=== PATIENT | male | born 1960 | race Caucasian/White ===

== ENCOUNTER 2018-08-31 06:02 | Outpatient (CLI) | payer MEDICARE, SELFPAY ==
[2018-08-31 11:50] LABS: HCT 50.8 % (40.0-50.0); HGB 17.2 g/dL (13.5-17.5); Mean Corp. HGB Concentration 33.9 g/dL (32.0-36.0); Mean Corpuscular Volume 94.6 fL (80-95); Mean Platelet Volume 9.2 fL (8.0-11.0); Platelet Count 260 x1000/uL (130-400); RBC 5.37 m/cumm (4.50-6.00); RBC Distribution Width 14.1 % (11.8-14.1); White Blood Cell Count 12.15 k/cumm (4.4-10.8)
[2018-08-31 12:33] LABS: Anion Gap 8.5 mmol/L (3-11); BUN 6 mg/dL (7-18); CO2 29.5 mmol/L (21.0-32.0); CREATININE 1.02 mg/dL (0.70-1.30); Calcium 9.4 mg/dL (8.5-10.1); Chloride 102 mmol/L (98-107); Cholesterol 190 mg/dL (50-200); Glucose 95 mg/dL (70-100); HDL Cholesterol 38 mg/dL (40-60); LDL CHOLESTEROL 130 mg/dL (<100); Potassium 4.3 mmol/L (3.5-5.1); Sodium 140 mmol/L (136-145); Triglyceride 117 mg/dL (30-150)
== END 2018-08-31 06:22 ==
PROVIDERS: PCP Family Medicine; Visit Provider Family Medicine
DX: D45 Polycythemia vera (principal); E11.9 Type 2 diabetes mellitus without complications
CPT/HCPCS: 36415; 80048; 80061; 83721; 85027

== ENCOUNTER → 2018-10-25 08:56 | Outpatient (BNVA) | payer MEDICARE, SELFPAY | PROVIDERS: PCP Family Medicine; Referring Provider Family Medicine; Visit Provider Orthopaedic Surgery | DX: M65.331 Trigger finger, right middle finger (principal) | CPT/HCPCS: 99211; 99212 ==

== ENCOUNTER 2020-04-21 08:25 | Outpatient (CLI) | payer MEDICARE, SELFPAY ==
[2020-04-23 15:14] LABS: Patient Race White; SARS-CoV-2 RNA Undetected (Undetected); SARS-CoV-2 Specimen Source Nasopharynx
== END 2020-04-21 08:45 ==
PROVIDERS: PCP Family Medicine; Visit Provider Family Medicine
DX: R51 Headache (principal); R43.8 Other disturbances of smell and taste
CPT/HCPCS: U0003

== ENCOUNTER 2020-06-04 09:07 | Outpatient (CLI) | payer MEDICARE, SELFPAY ==
[2020-06-06 20:21] LABS: Patient Race White; SARS-CoV-2 RNA Undetected (Undetected); SARS-CoV-2 Specimen Source Nasopharynx
== END 2020-06-04 09:27 ==
PROVIDERS: PCP Family Medicine; Visit Provider Family Medicine
DX: R50.9 Fever, unspecified (principal); R19.7 Diarrhea, unspecified; R11.10 Vomiting, unspecified
CPT/HCPCS: 87449; U0003

== ENCOUNTER 2021-04-29 02:36 | Outpatient (CLI) | payer MEDICARE, SELFPAY ==
[2021-04-29 12:21] LABS: HCT 51.7 % (40.0-50.0); HGB 16.9 g/dL (13.5-17.5); MCH 31.2 pg (27.0-33.0); MCHC 32.7 % (32.0-36.0); MCV 95.4 fL (80-95); MPV 8.7 fL (8.0-11.0); Platelet Count 304 10^3/uL (130-400); RBC 5.42 10^6/uL (4.36-5.78); RDW 13.7 % (11.8-14.1); RDW-SD 48.4 fL; WBC 12.42 10^3/uL (4.4-10.8)
[2021-04-29 12:39] LABS: ALT 27 U/L (16-63); AST 24 U/L (15-37); Albumin 3.6 g/dL (3.4-5.0); Alkaline Phosphatase 109 U/L (46-116); Anion Gap 8.4 mmol/L (3-11); BUN 6 mg/dL (7-18); Bilirubin, Total 0.5 mg/dL (0.2-1.0); CO2 27.6 mmol/L (21.0-32.0); Calculated LDL 141 mg/dL (<100); Chloride 102 mmol/L (98-107); Cholesterol 198 mg/dL (<200); Glucose 143 mg/dL (74-106); HDL Cholesterol 37 mg/dL (40-60); Potassium 4.1 mmol/L (3.5-5.1); Sodium 138 mmol/L (136-145); Total Protein 7.1 g/dL (6.4-8.2); Triglyceride 104 mg/dL (<150)
[2021-04-29 12:43] LABS: Calcium 8.9 mg/dL (8.5-10.1)
[2021-04-29 13:49] LABS: Absolute Eosinophil Count 0.62 10^3/uL (0.0-0.7); Absolute Lymphocyte Count 3.73 10^3/uL (1.2-3.4); Absolute Monocyte Count 0.75 10^3/uL (0.1-0.8); Absolute Neutrophil Count 7.33 10^3/uL (1.2-6.7); Diff Comment Manual Differential; RBC Morphology Normal
== END 2021-04-29 02:37 | disposition home or self-care (01) ==
LOC: LOS 02:37
PROVIDERS: PCP Family Medicine; Visit Provider Family Medicine
DX: I10 Essential (primary) hypertension (principal); D45 Polycythemia vera
CPT/HCPCS: 36415; 80053; 80061; 85025

== ENCOUNTER 2021-05-05 02:32 | Outpatient (CLI) | payer MEDICARE, SELFPAY ==
[2021-05-05 12:57] LABS: Hemoglobin A1C 6.1 % (<5.7)
== END 2021-05-05 02:33 | disposition home or self-care (01) ==
LOC: LOS 02:33
PROVIDERS: PCP Family Medicine; Visit Provider Family Medicine
DX: Z13.1 Encounter for screening for diabetes mellitus (principal)
CPT/HCPCS: 36415; 83036

== ENCOUNTER 2021-07-02 14:55 | Outpatient (CLI) | payer MEDICARE, SELFPAY ==
--- NOTE | 2021-07-02 15:10 | DI.CT_ITS ---
Exam(s) CT HEAD WO EXAM: CT HEAD WO CLINICAL HISTORY: Accidental falls, headache R51.9. TECHNIQUE: Imaging Protocol: Axial computed tomography images with coronal and sagittal reformatted images were created and reviewed COMPARISON: CT CTA BRAIN AND NECK from 01/31/2017 FINDINGS: There is moderate generalized cerebral atrophy. No evidence of acute intracranial hemorrhage, mass effect, or midline shift. The orbital structures are unremarkable. The temporal bone structures appear intact. Calvarium: Normal. Visualized Paranasal sinuses/Mastoids: Clear. IMPRESSION: No evidence of acute intracranial process. RADIATION DOSE DELIVERED: 916.99mGy.cm Total DLP 916.99mGy.cm Total DLP CTDIvol DATA REPOSITORY: All CT scans at this facility are submitted to the National Radiology Data Registry (NRDR) Dose Index Registry (DIR) with the [employer] ([employer]). RADIATION OPTIMIZATION: All CT scans at this facility use at least one of these dose optimization te chniques: automated exposure control; mA and/or kV adjustment per patient size (includes targeted exa ms where dose is matched to clinical indication); or iterative reconstruction.
== END 2021-07-02 15:15 ==
LOC: DI 14:57
PROVIDERS: PCP Family Medicine; Visit Provider Family Medicine
DX: R51.9 Headache, unspecified (principal)
CPT/HCPCS: 70450

== ENCOUNTER 2021-07-21 01:27 | Outpatient (CLI) | payer MEDICARE, SELFPAY ==
[2021-07-21 13:31] LABS: Calculated LDL 61 mg/dL (<100); Cholesterol 125 mg/dL (<200); HDL Cholesterol 41 mg/dL (40-60); Triglyceride 117 mg/dL (<150)
== END 2021-07-21 01:28 | disposition home or self-care (01) ==
LOC: LOS 01:28
PROVIDERS: PCP Family Medicine; Visit Provider Family Medicine
DX: E78.2 Mixed hyperlipidemia (principal); Z00.00 Encounter for general adult medical examination without abnormal findings
CPT/HCPCS: 36415; 80061

== ENCOUNTER 2021-11-15 14:12 | Outpatient (CLI) | payer MEDICARE, SELFPAY ==
--- NOTE | 2021-11-15 13:30 | DI.RAD_ITS ---
Exam(s) XR HIP RT 1V XR HIP LT COMPLETE AP PELVIS EXAM: XR HIP LT COMPLETE AP PELVIS INDICATION: pain in hips. COMPARISON: CR from 03/29/2016 CR XR HIP RT 1V from 11/15/2021 TECHNIQUE: 2D digital imaging was performed. AP pelvis and frog-leg lateral views of both hips. FINDINGS: Hip joint spaces are well maintained. There is minimal acetabular spurring. Femoral heads appear in tact. Soft tissues unremarkable. SI joints and pubic symphysis appear normal. IMPRESSION: Mild degenerative changes of both hips. DATA REPOSITORY: RADIATION DOSE DELIVERED:
== END 2021-11-15 14:13 | disposition home or self-care (01) ==
LOC: DIORS 14:13
PROVIDERS: PCP Family Medicine; Referring Provider Family Medicine; Visit Provider Student in an Organized Health Care Education/Training Program
DX: M70.61 Trochanteric bursitis, right hip (principal); M70.62 Trochanteric bursitis, left hip
CPT/HCPCS: 99203; 73501; 73502

== ENCOUNTER 2021-11-30 01:21 | Outpatient (CLI) | payer MEDICARE, SELFPAY ==
--- NOTE | 2021-11-30 07:30 | DI.MRI_ITS ---
Exam(s) MR LOWER JOINT LT WO EXAM: MR LOWER JOINT LT WO CLINICAL HISTORY: PAIN LT HIP, M25.552. TECHNIQUE: Multiplanar multisequence MRI was performed.. COMPARISON: None. FINDINGS: BONES/JOINTS: No evidence of fracture. There is a small subchondral cyst in the superior acetabulum o n the left. No joint space narrowing identified. No joint effusion identified. MUSCULOTENDINOUS STRUCTURES: There is mild hyperintense signal seen in the region of the gluteus mini mus tendon insertion site onto the greater trochanter. The muscles in the left hip show normal signa l and size. No significant muscular fatty atrophy. SOFT TISSUES: No suspicious cystic or solid masses are seen in the soft tissues around the left hip. OTHER FINDINGS: There is diverticulosis seen in the sigmoid colon. IMPRESSION: Gluteus minimus tendinosis. DATA REPOSITORY:
== END 2021-11-30 01:41 ==
LOC: DI 01:22
PROVIDERS: PCP Family Medicine; Visit Provider Student in an Organized Health Care Education/Training Program
DX: M76.02 Gluteal tendinitis, left hip; M25.552 Pain in left hip
CPT/HCPCS: 73721

== ENCOUNTER → 2021-12-03 10:16 | Outpatient (BNVA) | payer MEDICARE, SELFPAY | PROVIDERS: PCP Family Medicine; Referring Provider Family Medicine; Visit Provider Student in an Organized Health Care Education/Training Program | DX: M70.62 Trochanteric bursitis, left hip (principal); M70.61 Trochanteric bursitis, right hip | CPT/HCPCS: 20610; J1040 ==

== ENCOUNTER → 2021-12-28 09:29 | Outpatient (BNVA) | payer MEDICARE, SELFPAY | PROVIDERS: PCP Family Medicine; Referring Provider Family Medicine; Visit Provider Physician Assistant Surgical | DX: M70.61 Trochanteric bursitis, right hip (principal); M70.62 Trochanteric bursitis, left hip | CPT/HCPCS: 20610; J1040 ==

== ENCOUNTER 2022-03-28 01:44 | Outpatient (CLI) | payer MEDICARE, SELFPAY ==
--- NOTE | 2022-03-28 11:17 | DI.CT_ITS ---
Exam(s) CT HEAD WO EXAM: CT HEAD WO CLINICAL HISTORY: concussion, headache,S06.0X1A. TECHNIQUE: Imaging Protocol: Axial computed tomography images with coronal and sagittal reformatted images were created and reviewed COMPARISON: CT CT HEAD WO from 07/02/2021 FINDINGS: There are no skull fractures nor fluid in the visualized paranasal sinuses. There is no evidence of intracranial hemorrhage, mass effect, or shift of midline structures. There are no extra-axial fluid collections. The ventricles are not enlarged or shifted and there is no blo od within the ventricular system nor within the basal cisterns. IMPRESSION: No acute intracranial findings on this noninfused CT scan of the brain. No significant change compared to 07/02/2021. RADIATION DOSE DELIVERED: 985.91mGy.cm Total DLP DATA REPOSITORY: All CT scans at this facility are submitted to the National Radiology Data Registry (NRDR) Dose Index Registry (DIR) with the [employer] ([employer]). RADIATION OPTIMIZATION: All CT scans at this facility use at least one of these dose optimization te chniques: automated exposure control; mA and/or kV adjustment per patient size (includes targeted exa ms where dose is matched to clinical indication); or iterative reconstruction.
== END 2022-03-28 02:04 ==
LOC: DI 01:44
PROVIDERS: PCP Family Medicine; Visit Provider Family Medicine
DX: S06.0X1A Concussion with loss of consciousness of 30 minutes or less, initial encounter (principal); X58.XXXA Exposure to other specified factors, initial encounter
CPT/HCPCS: 70450

== ENCOUNTER → 2022-04-07 09:47 | Outpatient (BNVA) | payer MEDICARE, SELFPAY | PROVIDERS: PCP Family Medicine; Referring Provider Family Medicine; Visit Provider Nurse Practitioner Adult Health | DX: G44.309 Post-traumatic headache, unspecified, not intractable (principal); G62.9 Polyneuropathy, unspecified; J44.9 Chronic obstructive pulmonary disease, unspecified; F32.A Depression, unspecified | CPT/HCPCS: 99204; 99215 ==

== ENCOUNTER → 2022-04-15 09:47 | Outpatient (BNVA) | payer MEDICARE, SELFPAY | PROVIDERS: PCP Family Medicine; Referring Provider Family Medicine; Visit Provider Student in an Organized Health Care Education/Training Program | DX: M70.61 Trochanteric bursitis, right hip (principal); M70.62 Trochanteric bursitis, left hip | CPT/HCPCS: 20610; J1040 ==

== ENCOUNTER 2022-05-17 09:11 | Outpatient (CLI) | payer OTHER, SELFPAY ==
--- NOTE | 2022-05-17 09:00 | DI.RAD_ITS ---
Exam(s) XR HIP LT AP LAT ONLY XR HIP RT COMPLETE AP PELVIS EXAM: XR HIP RT COMPLETE AP PELVIS and XR hip LT CLINICAL HISTORY: right hip bursitis. TECHNIQUE: 2D digital imaging was performed of the pelvis and bilateral hips. Five images were obta ined. AP pelvis and lateral views of both hips were obtained. COMPARISON: CR XR HIP LT COMPLETE AP PELVIS from 11/15/2021 CR XR HIP RT 1V from 11/15/2021 FINDINGS: BONES: No acute fracture is present. No bony destructive lesion is seen. JOINTS: No dislocation present. The hip joint spaces are well maintained without significant degenera tive change. The sacroiliac joints and symphysis pubis are unremarkable. SOFT TISSUE: Mild vascular calcification is present. IMPRESSION: Unrmarkable radiographs of bilat hips. Unremarkable radiographs of the pelvis DATA REPOSITORY: RADIATION DOSE DELIVERED:
== END 2022-05-17 09:12 | disposition home or self-care (01) ==
LOC: DIORS 09:12
PROVIDERS: PCP Family Medicine; Referring Provider Family Medicine; Visit Provider Student in an Organized Health Care Education/Training Program
DX: M70.61 Trochanteric bursitis, right hip (principal); M70.62 Trochanteric bursitis, left hip; M76.31 Iliotibial band syndrome, right leg; M76.32 Iliotibial band syndrome, left leg; S76.012A Strain of muscle, fascia and tendon of left hip, initial encounter; X58.XXXA Exposure to other specified factors, initial encounter
CPT/HCPCS: 99214; 73502

== ENCOUNTER → 2022-05-23 10:54 | Outpatient (BNVA) | payer OTHER, SELFPAY | PROVIDERS: PCP Family Medicine; Referring Provider Family Medicine; Visit Provider Nurse Practitioner Adult Health | DX: R51.9 Headache, unspecified (principal) | CPT/HCPCS: 99211 ==

== ENCOUNTER → 2022-08-31 13:11 | Outpatient (BNVA) | payer OTHER, SELFPAY | PROVIDERS: PCP Family Medicine; Referring Provider Family Medicine; Visit Provider Student in an Organized Health Care Education/Training Program | DX: M76.31 Iliotibial band syndrome, right leg (principal); M76.32 Iliotibial band syndrome, left leg; M70.61 Trochanteric bursitis, right hip; M70.62 Trochanteric bursitis, left hip; S76.012A Strain of muscle, fascia and tendon of left hip, initial encounter; X58.XXXA Exposure to other specified factors, initial encounter | CPT/HCPCS: 99214 ==

== ENCOUNTER 2022-09-06 01:43 | Outpatient (CLI) | payer OTHER, SELFPAY ==
--- NOTE | 2022-09-06 | DI.RAD_ITS ---
Exam(s) XR CHEST 2V PA LATERAL EXAM: XR CHEST 2V PA LATERAL CLINICAL HISTORY: PREOP,CHRONIC OBSTRUCTION LUNG DISEASE,J44.9,Z01.818. TECHNIQUE: 2D digital imaging was performed. COMPARISON: No exams were available for comparison FINDINGS: 2 views: Heart size is normal. The mediastinum is not widened. Lungs are clear. No infiltrates nor pleural effusions. IMPRESSION: No acute pulmonary findings. DATA REPOSITORY: RADIATION DOSE DELIVERED:
== END 2022-09-06 02:03 ==
PROVIDERS: PCP Family Medicine; Visit Provider Student in an Organized Health Care Education/Training Program
DX: Z01.818 Encounter for other preprocedural examination (principal); J44.9 Chronic obstructive pulmonary disease, unspecified
CPT/HCPCS: 71046

== ENCOUNTER 2022-09-06 03:04 | Outpatient (CLI) | payer OTHER, SELFPAY ==
[2022-09-06 10:44] LABS: HCT 46.5 % (40.0-50.0); HGB 15.8 g/dL (13.5-17.5); MCH 32.8 pg (27.0-33.0); MCV 97 fL (80-95); MPV 8.3 fL (8.0-11.0); Platelet Count 260 10^3/uL (130-400); RBC 4.82 10^6/uL (4.36-5.78); RDW 13.3 % (11.8-14.1); RDW-SD 47.6 fL; WBC 10.21 10^3/uL (4.4-10.8)
[2022-09-06 11:03] LABS: Anion Gap 7.1 mmol/L (3-11); BUN 8 mg/dL (7-18); CO2 26.9 mmol/L (21.0-32.0); CREATININE 1.1 mg/dL (0.70-1.30); Chloride 102 mmol/L (98-107); Glucose 159 mg/dL (74-106); Sodium 136 mmol/L (136-145)
== END 2022-09-06 03:05 | disposition home or self-care (01) ==
LOC: LBO 03:04
PROVIDERS: PCP Family Medicine; Visit Provider Student in an Organized Health Care Education/Training Program
DX: S76.012A Strain of muscle, fascia and tendon of left hip, initial encounter (principal); M76.31 Iliotibial band syndrome, right leg; M76.32 Iliotibial band syndrome, left leg; M70.61 Trochanteric bursitis, right hip; M70.62 Trochanteric bursitis, left hip; Z01.818 Encounter for other preprocedural examination; Z01.812 Encounter for preprocedural laboratory examination
CPT/HCPCS: 36415; 80048; 85027

== ENCOUNTER 2022-09-06 10:08 | Outpatient (CLI) | payer OTHER, SELFPAY ==
--- NOTE | 2022-09-06 10:15 | RT.EKG_ITS ---
APPROVED REPORT Exam: Resting ECG Reason for Exam: PREOP PHYSICAL EXAM Patient Location: O HR:71 bpm ECG Measurements Heart Rate 71 AXIS TX 165 P 68 QRSd 110 QRS 49 QT 387 T 68 QTc 421 Conclusion Sinus rhythm...normal P axis, V-rate 50- 99 Normal Electrocardiogram
== END 2022-09-06 10:09 | disposition home or self-care (01) ==
LOC: CARDOPNVT 10:08
PROVIDERS: PCP Family Medicine; Visit Provider Student in an Organized Health Care Education/Training Program
DX: Z01.818 Encounter for other preprocedural examination (principal)
CPT/HCPCS: 93005; 93010

== ENCOUNTER 2022-09-09 05:56 | Day surgery (SDC) | payer OTHER, SELFPAY ==
[2022-09-09] VITALS (13 sets, daily range): BP systolic 106–160; BP diastolic 71–97; PULSE 58–86; RESP 12–21; TEMP 36–36.7; O2SAT 90–98; BMI 31.5
--- NOTE | 2022-09-09 07:00 | DI.RAD_ITS ---
Exam(s) XR HIP RT IN OR EXAM: XR HIP RT IN OR CLINICAL HISTORY: Iliotibial band syndrome of both sides TECHNIQUE: 2D and realtime digital imaging was performed. CONTRAST MATERIAL: Refer to procedure report. COMPARISON: No exams were available for comparison FINDINGS: Fluoroscopy was provided for Dr. Elizabeth during hip surgery. Please refer to the procedure report fo r complete details. Ka,r=0.7 mGy IMPRESSION: RADIATION DOSE DELIVERED:
--- NOTE | 2022-09-09 07:00 | DI.RAD_ITS ---
Exam(s) XR HIP LT IN OR EXAM: XR HIP LT IN OR CLINICAL HISTORY: Iliotibial band syndrome of both sides TECHNIQUE: 2D and realtime digital imaging was performed. CONTRAST MATERIAL: Refer to procedure report. COMPARISON: No exams were available for comparison FINDINGS: Fluoroscopy was provided for Dr. Elizabeth during hip surgery. Please refer to the procedure report for complete details. Ka,r=0.69 mGy IMPRESSION: RADIATION DOSE DELIVERED:
[2022-09-09] MEDS: Lactated Ringers 1,000 ML 30 ML IV (07:03)
--- NOTE | 2022-09-09 07:13 | W.ANESPRE ---
General Info Date of Service Date Performed: 09/09/22 Height: 6 ft 2 in Weight: 111.4 kg Body Mass Index (BMI): 31.5 Surgical Procedure: Operation Date: 09/09/22 07:50 Proposed Procedure Side Surgeon p Endoscopic Iliotibial Band Release w/Trochanteric Bursectomy, Possible Lt Gluteal Tendon Repair Bilateral Robe Elizabeth MD Meds Allergies and Home Medications Allergies Allergy/AdvReac Type Severity Reaction Status Date / Time No Known Allergies Allergy Verified 09/08/22 11:47 Home Medication Medication Instructions Recorded acetaminophen 500 mg tablet 2 tab PO TID 11/19/15 duloxetine 60 mg capsule,delayed 120 mg PO DAILY #180 tab-caps 10/27/21 release (Cymbalta) quetiapine 200 mg tablet (Seroquel) See Rx Instructions .Route 01/19/22 .COMPLEX #360 tabs erenumab-aooe 140 mg/mL 140 mg subcut QMONTH 05/23/22 subcutaneous auto-injector (Aimovig Autoinjector) gabapentin 300 mg capsule 600 mg PO .COMPLEX #150 caps 06/07/22 aspirin 81 mg tablet,delayed 81 mg PO DAILY Prevent blood clot 09/09/22 release 14 days #14 tabs naproxen 250 mg tablet 250 - 500 mg PO BID PRN #40 tabs 09/09/22 oxycodone 5 mg tablet 5 - 10 mg PO Q4H PRN moderate to 09/09/22 severe pain #18 tabs Current Visit Medications: Current Medications Generic Name Dose Route Start Last Admin Trade Name Freq PRN Reason Stop Dose Admin Ringer's Solution 1,000 mls @ 30 mls/hr 09/09/22 06:00 09/09/22 07:03 IV 09/09/22 16:00 30 mls/hr INFUSION KEVIN Administration Cefazolin Sodium 3,000 mg/ 100 mls @ 200 mls/hr 09/09/22 06:00 Sodium Chloride IVPB 09/09/22 16:00 PREOP KEVIN IV Miscellaneous Supplies 1 each 09/09/22 06:00 Iv Access IV 09/09/22 23:59 DIRECTED KEVIN Sodium Chloride 0 ml 09/09/22 06:00 Normal Saline Flush 10 Ml Syr IV 09/09/22 23:59 PRN PRN Sodium Chloride 0 ml 09/09/22 06:00 Normal Saline 10 Ml Vial IJ 09/09/22 23:59 DIRECTED PRN Sterile Water 0 ml 09/09/22 06:00 Water,Injection,Sterile 10 Ml Vial IJ 09/09/22 23:59 DIRECTED PRN PFSH Active Problems Active Problems: Problem Status Onset Code Chronic obstructive lung disease 12/03/07 J44.9 Explosive personality disorder 09/06/13 F60.3 Grief 02/18/16 F43.21 Polycythemia vera 01/17/13 D45 Primary fibromyalgia syndrome 01/17/13 M79.7 Sacroiliitis, not elsewhere classified 05/10/13 M46.1 Trochanteric bursitis of both hips 11/24/16 M70.61, M70.62 Loneliness Z65.8 Smoker F17.200 Hyperlipemia, mixed E78.2 Headache in front of head R51.9 Post-concussion headache G44.309 Peripheral neuropathy G62.9 Iliotibial band syndrome of both sides M76.31, M76.32 Trochanteric bursitis of both hips M70.61, M70.62 Tear of left gluteus medius tendon S76.012A Pre-op evaluation Z01.818 Medical History Medical History (Updated 09/09/22 @ 07:15 by Robe Elizabeth MD) Bursitis of left shoulder (04/26/16) 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 09/09/22 - Pt reports post nasal drip Surgical History Surgical History (Updated 09/09/22 @ 06:36 by Olamide Lorenzo RN) H/O lateral meniscus repair of right knee S/P trigger finger release Tobacco Smoking/Tobacco Use Status: Current every day (8-10 a day) Tobacco Type: cigarettes Smoking packs per day: 1.5 Smoking cigarettes per day: 30.0 Alcohol Alcohol Intake: former Year quit: 1999 Substance Use Substance use: Daily Substance use type: marijuana Details: Last smoked marijuana 09/08/22 Vital Signs and Lab Results Vital Signs Most Recent Vital Signs in EMR: Most Recent Vital Signs Temp Pulse Resp BP Pulse Ox 36.4 C L 86 18 156/91 H 96 09/09/22 06:41 09/09/22 06:41 09/09/22 06:41 09/09/22 06:41 09/09/22 06:41 Lab Results Blood Type / Crossmatch: No Data to Display Complete Blood Count: White Blood Count 10.21 10^3/uL (4.4-10.8) 09/06/22 10:35 Red Blood Count 4.82 10^6/uL (4.36-5.78) 09/06/22 10:35 Hemoglobin 15.8 g/dL (13.5-17.5) 09/06/22 10:35 Hematocrit 46.5 % (40.0-50.0) 09/06/22 10:35 Platelet Count 260 10^3/uL (130-400) 09/06/22 10:35 Complete Metabolic Panel: Sodium 136 mmol/L (136-145) 09/06/22 10:35 Potassium 4.0 mmol/L (3.5-5.1) 09/06/22 10:35 Chloride 102 mmol/L (98-107) 09/06/22 10:35 Carbon Dioxide 26.9 mmol/L (21.0-32.0) 09/06/22 10:35 BUN 8 mg/dL (7-18) 09/06/22 10:35 Creatinine 1.1 mg/dL (0.70-1.30) 09/06/22 10:35 Est GFR (CKD-EPI 2020) 75.90 (mL/min/1.73m2) 09/06/22 10:35 Calcium 9.0 mg/dL (8.5-10.1) 09/06/22 10:35 Glucose 159 mg/dL (74-106) H 09/06/22 10:35 Liver Function Panel: No Data to Display Coagulation Panel: No Data to Display Cardiac Panel: No Data to Display Arterial Blood Gas: No Data to Display Venous Blood Gas: No Data to Display Pancreas Panel: No Data to Display Thyroid Panel: No Data to Display Infectious Disease: No Data to Display Blood Cultures: No Data to Display Toxicology Panel: No Data to Display Imaging and Studies Imaging and Studies Study information below may be from another EMR and interpreted by another provider. Please see original notes in EMR for more complete details. EKG Summary: Conclusion Sinus rhythm...normal P axis, V-rate 50- 99 Normal Electrocardiogram 1/17/23 Anesthesia Assessment and Plan Anesthesia History Personal History: No History of Anesthesia Complications Family History: No Family History of Anesthesia Complications Exercise Tolerance Exercise Tolerance: Metabolic Equivalents>4 Pertinent Negatives Pertinent Negatives: No Symptoms of GERD (Controlled with meds), No Major Cardiovascular Symptoms or Complaints, No Major Pulmonary Symptoms or Complaints and No History of CVA/TIA Cardiac & Pulmonary Exam Cardiac Exam: Normal S1/S2 Heart Sounds Pulmonary Exam: Clear Bilateral Breath Sounds Implantable Cardiac Device Does patient have a Pacemaker or an ICD?: No Airway Exam Known Difficult Airway: No Mallampati Class: 3 Mouth Opening: Normal (> 3cm) Thyromental Distance: Greater than 3 cm Neck Range of Motion: Full ROM Neck Circumference: Normal Teeth Condition: Removable Dentures/Plates Upper, Removable Dentures/Plates Lower and Edentulous ASA Classification ASA Score: ASA 2 Emergency Case?: No NPO Status NPO Status: NPO Clears >2 hours, Solids >8 hours Anesthesia Plan Resuscitation Status: Full Code Anesthesia Technique: General Anesthesia Airway Planned: Endotracheal Tube Monitors Used: Standard Monitors
[2022-09-09] MEDS: ceFAZolin 3,000 MG in Normal Saline 100 ML 200 MG IVPB (07:40)
[2022-09-09] MEDS: Bupivacaine 0.5% Pres-Free W/EPI 30 ML VIAL (08:08)
[2022-09-09] MEDS: EPINEPHrine 30 MG/30 ML VIAL (09:07)
[2022-09-09] MEDS: HYDROmorphone 2 MG/ML SYR IVP ×2 (10:05→10:15)
[2022-09-09] MEDS: Normal Saline 10 ML VIAL IJ (10:05)
[2022-09-09] MEDS: oxyCODONE 5 MG TAB PO (10:59)
--- NOTE | 2022-09-09 11:28 | W.ANESPOSTOP ---
Postoperative Evaluation Date, Time and Location Date Performed: 09/09/22 Time Performed: 11:28 Patient Location: Day Surgery Unit Vital Signs Most Recent Imported Vital Signs: Most Recent Vital Signs Temp Pulse Resp BP Pulse Ox 36.0 C L 61 18 155/78 H 98 09/09/22 11:09 09/09/22 11:09 09/09/22 11:09 09/09/22 11:09 09/09/22 11:09 Pain Score Most Recent Pain Score: Most Recent Pain Score Pain Level 4 09/09/22 11:09 Assessment Mental Status: Awake (Alert & Oriented to Patient Baseline) Airway and Respiratory Function: Patent airway with normal (patient baseline) respiratory exam Cardiovascular Function: Hemodynamically Stable Hydration Status: Adequately Hydrated Nausea & Vomiting: No Nausea or Vomiting Pain: Pain is tolerable per patient Peripheral Nerve Block: Patient did not receive a nerve block
--- NOTE | 2022-09-09 11:36 | W.PM.DSUDISC ---
Date of service: 09/09/22 Time of Service: 12:00 Discharge Plan Disposition Patient Disposition: Home Discharge Details Attending Provider: Robe Elizabeth Primary Care Provider: Nitish Franco Home Meds and New Rx's Prescriptions: New naproxen 250 mg tablet 250 - 500 mg PO BID PRNQty: 40 0RF Rx Instructions: take with a meal aspirin 81 mg tablet,delayed release (DR/EC) 81 mg PO DAILY 14 Days Qty: 14 0RF oxycodone 5 mg tablet 5 - 10 mg PO Q4H MDD 30 mg PRN (Reason: moderate to severe pain) Qty: 18 0RF Continued Aimovig Autoinjector 140 mg/mL auto-injector 140 mg subcut QMONTH acetaminophen 500 MG tablet 2 tab PO TID duloxetine [Cymbalta] 60 mg capsule,delayed release(DR/EC) 120 mg PO DAILY Qty: 180 4RF quetiapine [Seroquel] 200 mg tablet See Rx Instructions .ROUTE .COMPLEX Qty: 360 4RF Rx Instructions: 1 TAB QAM; 3 TABS QPM gabapentin 300 mg capsule 600 mg PO .COMPLEX Qty: 150 3RF Rx Instructions: 600 mg PO bid and 300mg at bedtime.; Discontinued ibuprofen 400 MG tablet 400 mg PO Q6H PRN Qty: 60 1RF Discharge Instructions Additional Instructions: Surgery: Bilateral hip endoscopy with iliotibial band release and trochanteric bursectomy Activity: Weightbearing as tolerated. May use walker as needed for a few weeks. Gradually advance to full range of motion and activity over the next few weeks. A physical therapy prescription will be provided separately in the office at follow up if needed. Prescriptions: Aspirin 81 mg take 1 daily to prevent a blood clot for 2 weeks Naproxen 250 mg take 1-2 every 12 hours with a meal as needed for moderate pain (do not use at the same time as ibuprofen) Oxycodone 5 mg take 1-2 every 4-6 hours as needed for severe pain You may use [id number] Tylenol (acetaminophen) as needed for mild pain. These pain medications may be taken all at once or in different combinations as needed. Also, recommend Colace (docusate) as a stool softener as surgery and pain medicine cause constipation. You may try zrqn-nmo-[id number] diphenhydramine (Benadryl) 25-50 mg nightly as a sleep aid Dressings: Leave dressing in place for 3 days. May then remove and leave open to air or cover incisions with Band-Aids. May shower after 5 days. Follow-up: 10-[address] Elizabeth Monday09/20/22 11:00am You may take off the leg compression stockings this evening at home. You may also leave them on a few days longer if you have a history of leg swelling or edema. Let us know right away if you develop any redness, drainage, fevers, chest pain, or trouble breathing. Do not drink alcohol or drive for at least 24 hours after anesthesia. Please call the office during business hours with any questions or concerns. Stand Alone Forms: Anesthesia Discharge Inst., Julio Hernandez ([facility]) Discharge Orders Discharge Orders: Discharge Order (Routine); Ordered 09/09/22 Ordered By: Robe Elizabeth DS: Diagnosis Discharge Diagnosis (1) Trochanteric bursitis of both hips: Status: Acute
--- NOTE | 2022-09-09 11:44 | ROE_ITS ---
Date of service: 09/09/22 Time of Service: 07:30 Operative Note Operative Note DATE OF PROCEDURE: 09/09/22 PRE-OP DIAGNOSIS: Bilateral hip 1. Iliotibial band syndrome 2. Trochanteric bursitis POST-OP DIAGNOSIS: same PROCEDURE: Left hip endoscopic 1. Iiliotibial band release, CPT# 47493 2. Trochanteric bursectomy, CPT# 43118 and Right hip endoscopic 1. Iiliotibial band release, CPT# 70405 2. Trochanteric bursectomy, CPT# 63870 SURGEON: Robe Elizabeth ARTIFICIAL BREAST FABRICATOR: Helen Duran ANESTHESIA TYPE: Local By Surgeon and General LMA/ETT Refer to Anesthesia Record ESTIMATED BLOOD LOSS: 10 COMPLICATIONS: None Patient was transported to: PACU Patient's condition: stable Indications: Please see complete medical record for details. Findings: Bilateral moderately thickened iliotibial band. Left worse than right moderate abundant inflamed trochanteric bursitis. No significant gluteal tendon tearing. Procedure Description: In the operating room, general anesthesia was induced. The patient was positioned supine on the [facility] operating room table. All bony prominences were well-padded. Preoperative antibiotics were administered. Starting with the Left side, the Left hip was prepped and draped in the usual sterile fashion. The correct patient, procedure, and side of the procedure were all verified prior to incision. 30 cc of 0.25% bupivacaine containing epinephrine was infiltrated about the subcutaneous tissues for the planned anterior lateral and distal anterolateral portals as well as deeply over the greater trochanter. A knife was used to incise the skin for the anterior lateral and distal anterolateral portals followed by blunt dissection subcutaneously. Under fluoroscopic guidance, a switching stick and arthroscope were inserted localizing the iliotibial band over the greater trochanter. Blunt dissection and the mechanical shaver were used to resect fat and overlying tissue about the center of the iliotibial band and carefully expose the anterior and posterior margins. Once there was adequate exposure of the IT band, the greater trochanter was again localized under fluoroscopic guidance with a spinal needle inserted through the skin down to bone. This central area was marked using the radiofrequency ablator. A Levy blade was brought in and used to create a 2 cm longitudinal incision in line with the IT band fibers as well as extending it in a cruciate fashion with 2 cm incisions anteriorly and posteriorly. The radiofrequency ablator was used to achieve hemostasis. The mechanical shaver was then used to debride the IT band released edges exposing the trochanteric bursa. The mechanical shaver was then used to excise the trochanteric bursa taking care to protect musculature about the margins of the greater trochanter as well as neurovascular structures especially posteriorly. There was excellent visualization of the vastus lateralis as well as gluteus medius confirming appropriate bursa excision. The hip was brought through range of motion including internal and external rotation and there was no impinging iliotibial band tissue or remaining pathologic bursa. The viewing and working portals were switched and appropriate IT band release, trochanteric bursa excision, and hemostasis confirmed. There was mild gluteal minimus and medius fraying but no cori tearing or hypermobility. No repair was indicated. Suction was used to remove fluid from the endoscopic space. The portals were closed using 3-0 Monocryl in a buried fashion. Steri-Strips were applied over the incisions followed by Xeroform, 4 x 4 gauze, an ABD pad, and secured with tape. Next, the Right hip was prepped and draped in the usual sterile fashion. 30 cc of 0.25% bupivacaine containing epinephrine was infiltrated about the subcutaneous tissues for the planned anterior lateral and distal anterolateral portals as well as deeply over the greater trochanter. A knife was used to incise the skin for the anterior lateral and distal anterolateral portals followed by blunt dissection subcutaneously. Under fluoroscopic guidance, a switching stick and arthroscope were inserted localizing the iliotibial band over the greater trochanter. Blunt dissection and the mechanical shaver were used to resect fat and overlying tissue about the center of the iliotibial band and carefully expose the anterior and posterior margins. Once there was adequate exposure of the IT band, the greater trochanter was again localized under fluoroscopic guidance with a spinal needle inserted through the skin down to bone. This central area was marked using the radiofrequency ablator. A Levy blade was brought in and used to create a 2 cm longitudinal incision in line with the IT band fibers as well as extending it in a cruciate fashion with 2 cm incisions anteriorly and posteriorly. The radiofrequency ablator was used to achieve hemostasis. The mechanical shaver was then used to debride the IT band released edges exposing the trochanteric bursa. The mechanical shaver was then used to excise the trochanteric bursa taking care to protect musculature about the margins of the greater trochanter as well as neurovascular structures especially posteriorly. There was excellent visualization of the vastus late ralis as well as gluteus medius confirming appropriate bursa excision. The hip was brought through range of motion including internal and external rotation and there was no impinging iliotibial band tissue or remaining pathologic bursa. The viewing and working portals were switched and appropriate IT band release, trochanteric bursa excision, and hemostasis confirmed. There was minimal gluteus medius superficial fraying. No repair was indicated. Suction was used to remove fluid from the endoscopic space. The portals were closed using 3-0 Monocryl in a buried fashion. Steri-Strips were applied over the incisions followed by Xeroform, 4 x 4 gauze, an ABD pad, and secured with tape. The patient awoke from anesthesia without complication and was transferred to the recovery room in a stable condition.
== END 2022-09-09 15:00 | disposition home or self-care (01) ==
PROVIDERS: PCP Family Medicine; Visit Provider Student in an Organized Health Care Education/Training Program
PROC: (CPT 29863; principal; 2022-09-09 07:30)
DX: M70.61 Trochanteric bursitis, right hip (principal); M70.62 Trochanteric bursitis, left hip; M76.32 Iliotibial band syndrome, left leg; M76.31 Iliotibial band syndrome, right leg
CPT/HCPCS: 27062; 27305; 73501; J0690; J1100; J1170; J1885; J2250; J2405; J2704